=== PATIENT | female | born 1950 | race Two or more races ===

== ENCOUNTER → 2021-06-12 08:00 | Outpatient (CLI) | payer OTHER ==
[~2021-06-12] VITALS: Ht 157.5 cm; Wt 56.2 kg
[~2021-06-12 08:00] MED LIST: ALENDRONATE SOD70 MG; ATORVASTATIN CA20 MG; CETIRIZINE HCL10 MG; CLARITIN10 M2; COZAAR50 MG PO; FAMOTIDINE20 MG; FLONASE16 GM; LEVO-T50 MCG PO; VITAMIN D31250 MCG
== END | disposition home or self-care (01) ==
LOC: LAB 08:00 → EDSTATUS 06-15 11:00 → SURH 06-15 11:00
PROVIDERS: ATTEND Surgery
DX: U07.1 COVID-19 (principal); D37.5 Neoplasm of uncertain behavior of rectum; D12.8 Benign neoplasm of rectum; R19.4 Change in bowel habit; Z01.810 Encounter for preprocedural cardiovascular examination; Z01.811 Encounter for preprocedural respiratory examination

== ENCOUNTER 2021-07-15 13:25 | Inpatient (IN) | payer OTHER ==
[~2021-07-15] VITALS: Ht 157.5 cm; Wt 57.2 kg
[~2021-07-15 13:25] MED LIST changes: -ALENDRONATE SOD70 MG; -ATORVASTATIN CA20 MG; -CETIRIZINE HCL10 MG; -CLARITIN10 M2; -FAMOTIDINE20 MG; -FLONASE16 GM; -VITAMIN D31250 MCG
[2021-07-20] MEDS ORDERED: VITAMIN D31250 MCG (11:02)
[2021-07-20] MEDS ORDERED: ALENDRONATE SOD70 MG (11:02)
[2021-07-20] MEDS ORDERED: CLARITIN10 M2 (11:02)
[2021-07-20] MEDS ORDERED: CETIRIZINE HCL10 MG (11:03)
[2021-07-20] MEDS ORDERED: FAMOTIDINE20 MG (11:03)
[2021-07-20] MEDS ORDERED: FLONASE16 GM (11:03)
[2021-07-20] MEDS ORDERED: ATORVASTATIN CA20 MG (11:03)
== END 2021-07-21 14:50 | disposition home or self-care (01) | DRG 334 ==
LOC: SURG 07-20 07:00 → O/R 07-20 09:15 → SURG 07-20 09:15
PROVIDERS: ADMIT Surgery; ATTEND Surgery
PROC: 3E0T3BZ Introduction of Anesthetic Agent into Peripheral Nerves and Plexi, Percutaneous Approach (ICD-10-PCS; 2021-07-20)
PROC: 0DJD8ZZ Inspection of Lower Intestinal Tract, Via Natural or Artificial Opening Endoscopic (ICD-10-PCS; 2021-07-20)
PROC: 0DBP0ZZ Excision of Rectum, Open Approach (ICD-10-PCS; principal; 2021-07-20 07:00)
DX: D12.8 Benign neoplasm of rectum (principal); Z20.822 Contact with and (suspected) exposure to COVID-19